=== PATIENT | male | born 1990 | race Caucasian/White ===

== ENCOUNTER 2020-08-05 19:17 | Emergency (ER) | payer OTHER ==
[2020-08-05 19:24] VITALS: BP 133/68; PULSE 60; TEMP 98.2; BMI 26.6
== END 2020-08-05 20:45 | disposition home or self-care (01) ==
LOC: JERFT 19:17
PROC: 0HQCXZZ Repair Left Upper Arm Skin, External Approach (ICD-10-PCS; principal; 2020-08-05)
PROC: 3E0233Z Introduction of Anti-inflammatory into Muscle, Percutaneous Approach (ICD-10-PCS; 2020-08-05)
DX: S40.012A Contusion of left shoulder, initial encounter (principal)
CPT/HCPCS: 73030-TC-LT-FY; 73060-TC-LT-FY; 73090-TC-LT-FY; 99285-25

== ENCOUNTER 2020-08-13 17:10 | Emergency (ER) | payer OTHER ==
[2020-08-13 17:26] VITALS: BP 125/61; PULSE 73; TEMP 97.1; BMI 26.6
== END 2020-08-13 17:56 | disposition home or self-care (01) ==
LOC: JERFT 17:10 → JER 17:10 → JERFT 17:56
DX: Z48.02 Encounter for removal of sutures (principal)
CPT/HCPCS: 99281-25